=== PATIENT | female | born 1995 | race Two or more races ===

== ENCOUNTER 2025-02-12 20:50 | Emergency (ER) | payer OTHER ==
[~2025-02-12] VITALS: Ht 165.1 cm; Wt 111.1 kg
[2025-02-12] MEDS ORDERED: FAMOTIDINE/PF 20 MG in 0.9 % SODIUM CHLORIDE 8 ML IV PUSH STA (21:40)
[2025-02-12] MEDS ORDERED: ONDANSETRON HCL 2 MG/ML VIAL IV ONE (21:45)
[2025-02-12] MEDS ORDERED: KETOROLAC TROMETHAMINE 30 MG VIAL IV ONE (21:45)
[2025-02-12] MEDS ORDERED: FAMOTIDINE/PF 20 MG/2 ML VIAL ONE (22:13)
[2025-02-12] MEDS ORDERED: ONDANSETRON HCL 2 MG/ML VIAL ONE (22:13)
[2025-02-12] MEDS ORDERED: KETOROLAC TROMETHAMINE 30 MG VIAL ONE (22:13)
[2025-02-12 22:34] LABS: BASO % 0.2 % (0.1-1.2); EOS # 0.15 (0.04-0.54); EOS % 1.6 % (0.7-7.0); HEMATOCRIT 40.5 % (34.1-44.9); HEMOGLOBIN 13.4 g/dL (11.2-15.7); LYMPH # 4.01 (1.18-3.74); LYMPH % 42.3 % (19.3-53.1); MEAN CORPUSCULAR HEMOGLOBIN 26.9 pg (25.6-32.2); MONO # 0.74 (0.24-0.82); MONO % 7.8 % (4.7-12.5); NEUT # 4.53 (1.56-6.13); NEUT % 47.9 % (34.0-71.1); PLATELET COUNT 300 K/uL (163-369); RED BLOOD COUNT 4.99 M/uL (3.93-5.22); RED CELL DISTRIBUTION WIDTH 13.2 % (11.6-14.4)
[2025-02-12 22:53] LABS: ALBUMIN 3.6 gm/dL (3.4-5.0); ALKALINE PHOSPHATASE 119 U/L (50-136); ALT/SGPT 19 U/L (12-78); ANION GAP 10 (10.0-20.0); AST/SGOT 14 U/L (15-37); BILIRUBIN TOTAL 0.23 mg/dL (0.3-1.2); BLOOD UREA NITROGEN 13 mg/dL (7-18); BUN CREA RATIO 19 (7.0-25.0); CALCIUM 9.2 mg/dL (8.5-10.1); CARBON DIOXIDE 29 mEq/L (21-32); CHLORIDE 107 mmol/L (98-107); CREATININE SERUM 0.67 mg/dL (0.55-1.02); GFR 105.58; GLOBULINA 3.6 G/DL (2.4-3.5); GLUCOSE FASTING 101 mg/dL (65-100); HCG QUANTITATIVE < 1 mUI/mL (1-3); OSMOLALITY SERUM 283 MOSM/KG (275-295); POTASSIUM 4.27 mEq/L (3.5-5.1); SODIUM 142 mmol/L (136-145); TOTAL PROTEIN 7.2 gm/dL (6.4-8.2)
[2025-02-12 23:43] LABS: COVID-19 AG NEGATIVE (NEGATIVE); INFLUENZA A AG NEGATIVE (NEGATIVE); INFLUENZA B AG NEGATIVE (NEGATIVE)
[2025-02-13] MEDS ORDERED: TRAMADOL HCL 50 MG TABLET PO STA (00:33)
[2025-02-13 00:37] LABS: URINE APPEARANCE Clear; URINE BILIRRUBIN Negative (NEGATIVE); URINE BLOOD Negative; URINE COLOR Yellow; URINE GLUCOSE Negative (NEGATIVE); URINE KETONE Negative (NEGATIVE); URINE LEUKOCYTE Negative; URINE NITRATE Negative; URINE PROTEIN Negative (NEGATIVE)
[2025-02-13 00:41] LABS: URINE EPITHELIAL CELLS 12.3 uL (0.0-38.8); URINE WBC 2.5 uL (0.0-23.2)
[2025-02-13 00:59] LABS: URINE CAST 0.44 uL (0.0-1.40); URINE RBC 1.6 uL (0.0-20.8)
== END 2025-02-13 01:07 | disposition home or self-care (01) ==
LOC: ER 20:50
PROVIDERS: General Practice
DX: R10.2 Pelvic and perineal pain (principal); Z20.822 Contact with and (suspected) exposure to COVID-19; N83.292 Other ovarian cyst, left side; Z88.8 Allergy status to other drugs, medicaments and biological substances